=== PATIENT | male | born 2000 | race Caucasian/White ===

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

== ENCOUNTER 2022-01-15 17:58 | Emergency (ER) | payer OTHER ==
[~2022-01-15] VITALS: Ht 198.1 cm; Wt 67.0 kg
[2022-01-15] MEDS ORDERED: BOOSTRIX/ADACEL VACCINE (DIPHTH/PERTUSS/ACELL/TETANUS) 0.5ML SYR IM ONE (20:45)
[2022-01-15] MEDS ORDERED: LIDOCAINE 1% MDV 20ML VIAL SC ONE (20:45)
[2022-01-15] MEDS ORDERED: AUGMENTIN 875 MG TAB PO ONE (21:45)
[2022-01-15] MEDS ORDERED: NEOSPORIN OINT 0.9 GM PKT TOP ONE (21:45)
[2022-01-15] MEDS ORDERED: AMOX875T2 PO (21:47)
[2022-01-15 22:00] VITALS: BP 129/77
== END 2022-01-15 22:03 | disposition home or self-care (01) ==
LOC: M ED 17:58
DX: S01.459A Open bite of unspecified cheek and temporomandibular area, initial encounter (principal); S61.451A Open bite of right hand, initial encounter; W54.0XXA Bitten by dog, initial encounter; Y92.009 Unspecified place in unspecified non-institutional (private) residence as the place of occurrence of the external cause; Z23 Encounter for immunization

== ENCOUNTER → 2022-02-06 | Outpatient (REF) | payer OTHER ==
[~2022-02-06] MED LIST: AMOX875T2 PO
== END ==
LOC: M LAB REF 15:22
PROVIDERS: ATTEND Student in an Organized Health Care Education/Training Program
DX: R30.0 Dysuria (principal)